=== PATIENT | male | born 1955 | race Caucasian/White ===

== ENCOUNTER → 2020-06-18 | Day surgery (SDC) | payer OTHER ==
[~2020-06-18] MED LIST: BUPIVACAINE HCL 0.5 % INJ/PF 30 ML SDV ONE; METHYLPREDNISOLONE ACETATE INJ 40 MG/1 ML ML ONE
--- NOTE | 2020-06-18 14:53 | RADIOLOGY REPORT (SQ) ---
EXAM DESCRIPTION: INJECT/ASPIR WRIST/ELB/ANKLE; FLUORO/NEEDLE PLACEMENT IMAGES COMPLETED DATE/TIME: 06/18/2020 1:34 pm REASON FOR STUDY: (M19.072)PRIMARY OSTEOARTHRITIS, LEFT ANKLE AND FOOT; PRIMARY OSTEOARTHRITIS, LEFT ANKLE AND FOOT M19.072 PRIMARY OSTEOARTHRITIS, LEFT ANKLE AND FOOT COMPARISON: None. FLUOROSCOPY TIME: 0.7 minutes 1 images saved to PACS. LIMITATIONS: None. PROCEDURE: SITE OF INJECTION: Left tibiotalar joint. LOCALIZING CONTRAST TYPE AND DOSE: 0.5 mL Omnipaque. MEDICATION TYPE AND DOSE: 40 mg Depo-Medrol, 1 mL bupivacaine. Using local anesthesia and sterile technique with fluoroscopic guidance, the needle was advanced into the joint. Iodinated contrast was injected to verify intraarticular placement. This was followed by therapeutic injection of the indicated medications. The needle was removed. There were no immediat e complications. Preprocedure pain level: 4/10. Postprocedure pain level: 2/10. IMPRESSION: THERAPEUTIC INJECTION OF THE LEFT TIBIOTALAR JOINT ABOVE. COMMENT: Patient medication list reviewed: Yes- Quality ID# [id number]:Eligible professional attests to doc umenting in the medical record they obtained, updated, or reviewed the patient's current medications. . Quality ID 145: Final reports for procedures using fluoroscopy that document radiation exposure maurice av, or exposure time and number of fluorographic images (if radiation exposure indices are not avail able) TECHNICAL DOCUMENTATION: JOB ID: [id number] 2010 [employer]- All Rights Reserved Reading location - IP/workstation name: [email or web address] [id number]
--- NOTE | 2020-06-18 14:53 | RADIOLOGY REPORT (SQ) ---
EXAM DESCRIPTION: INJECT/ASPIR WRIST/ELB/ANKLE; FLUORO/NEEDLE PLACEMENT IMAGES COMPLETED DATE/TIME: 06/18/2020 1:34 pm REASON FOR STUDY: (M19.072)PRIMARY OSTEOARTHRITIS, LEFT ANKLE AND FOOT; PRIMARY OSTEOARTHRITIS, LEFT ANKLE AND FOOT M19.072 PRIMARY OSTEOARTHRITIS, LEFT ANKLE AND FOOT COMPARISON: None. FLUOROSCOPY TIME: 0.7 minutes 1 images saved to PACS. LIMITATIONS: None. PROCEDURE: SITE OF INJECTION: Left tibiotalar joint. LOCALIZING CONTRAST TYPE AND DOSE: 0.5 mL Omnipaque. MEDICATION TYPE AND DOSE: 40 mg Depo-Medrol, 1 mL bupivacaine. Using local anesthesia and sterile technique with fluoroscopic guidance, the needle was advanced into the joint. Iodinated contrast was injected to verify intraarticular placement. This was followed by therapeutic injection of the indicated medications. The needle was removed. There were no immediat e complications. Preprocedure pain level: 4/10. Postprocedure pain level: 2/10. IMPRESSION: THERAPEUTIC INJECTION OF THE LEFT TIBIOTALAR JOINT ABOVE. COMMENT: Patient medication list reviewed: Yes- Quality ID# [id number]:Eligible professional attests to doc umenting in the medical record they obtained, updated, or reviewed the patient's current medications. . Quality ID 145: Final reports for procedures using fluoroscopy that document radiation exposure maurice av, or exposure time and number of fluorographic images (if radiation exposure indices are not avail able) TECHNICAL DOCUMENTATION: JOB ID: [id number] 2010 [employer]- All Rights Reserved Reading location - IP/workstation name: [email or web address] [id number]
== END ==
LOC: RAD 12:38
PROVIDERS: ATTEND Orthopaedic Surgery
DX: M19.072 Primary osteoarthritis, left ankle and foot (principal)
CPT/HCPCS: 20605; 77002; J3490; J1030